=== PATIENT | male | born 1965 ===

== ENCOUNTER 2017-01-21 21:48 | Emergency (ER) | payer MEDICARE ==
[2017-01-21 21:48] VITALS: BMI 35.9
[2017-01-21 21:59] VITALS: BP 157/94; PULSE 82; RESP 18; TEMP 98.9; O2SAT 98
[2017-01-21] MEDS ORDERED: TDAP Vaccine 0.5 mL Syr IM ONE (22:03)
--- NOTE | 2017-01-21 22:18 | ED PDOC ---
HPI: General Adult Time Seen by Provider: 01/21/17 21:58 Chief Complaint (Nursing): Upper Extremity Problem/Injury History Per: Patient Additional Complaint(s): Pt. states 2 days ago he slipped and fell backwards landing directly on the L elbow. Pt. states since then he's developed pain in that area. Reports also developing bruising. Pt. is concerned area may be infected as it feels warm. Denies fever, other injury, numbness, hx of anemia, head injury. Past Medical History Reviewed: Historical Data, Nursing Documentation, Vital Signs Vital Signs: Last Vital Signs Temp 98.9 F 01/21/17 21:56 Pulse 82 01/21/17 21:56 Resp 18 01/21/17 21:56 BP 157/94 H 01/21/17 21:56 Pulse Ox 98 01/21/17 22:21 - Medical History PMH: Anxiety, Depression, HTN Denies: Chronic Kidney Disease - Family History Family History: States: No Known Family Hx - Home Medications Home Medications: Ambulatory Orders Medication Instructions Recorded Enalapril Maleate 5 mg PO DAILY 09/17/15 Meloxicam 15 mg PO DAILY 09/17/15 Asenapine [Saphris] 10 mg SL DAILY 06/07/16 FLUoxetine [Fluoxetine HCl] 40 mg PO DAILY 06/07/16 - Allergies Allergies/Adverse Reactions: Allergies Allergy/AdvReac Type Severity Reaction Status Date / Time No Known Allergies Allergy Verified 09/16/15 09:10 Review of Systems ROS Statement: Except As Marked, All Systems Reviewed And Found Negative Physical Exam - Physical Exam Appears: Positive for: Well, Non-toxic, No Acute Distress Skin: Positive for: Normal Color, Warm. Negative for: Rash Pulses-Radial (L): 2+ Pulses-Radial (R): 2+ Extremity: Positive for: Normal ROM (actively of entire LUE), Capillary Refill ( < 2 seconds of LUE), Other (LUE: L elbow with direct pinpoint posterior tenderness with superficial abrasion with minimal warmth but no surrounding erythema, fluctuance, or induration; large ecchymotic area on medial distal L upper arm extending to L proximal forearm) Neurologic/Psych: Positive for: Alert, Oriented - ECG O2 Sat by Pulse Oximetry: 98 - Progress ED Course And Treament: tetanus prophylaxis administered x-rays ordered Elbow xray: 1. There may be mild soft tissue swelling over the olecranon process of the ulna. 2. No visible acute fracture or dislocation. Bacitracin ointment applied to abrasion. Elbow messi wrap applied along with shoulder sling. Pt. instructed to watch for any increase swelling, redness, discharge or fever and if any develop pt. is to return to ED immediately. Disposition - Clinical Impression Clinical Impression: Elbow contusion - Patient ED Disposition Is Patient to be Admitted: No - Disposition Referrals: Natalie Arambula MD [Staff Provider] - [facility] [Outside] Disposition: Routine/Home Disposition Time: 22:54 Condition: STABLE Instructions: Elbow Sprain (ED), Abrasion (ED) Print Language: GREEK
--- NOTE | 2017-01-22 10:20 | RAD ---
PROCEDURE: Left elbow dated 01/21/2017 HISTORY: Trauma COMPARISON: No prior. FINDINGS: BONES: The current study reveals no evidence of acute displaced fracture nor dislocation. Osseous structures appear intact. There is a tiny elliptical shaped well corticated bony density adjacent to the tip of the olecranon not seen on the oblique view which probably represent some old posttraumatic mineralization versus tiny chronic avulsion injury. Appear joint spaces otherwise unremarkable. There is moderate dorsal soft tissue swelling -edema infiltration of the subcutaneous tissues. The possibility of a posttraumatic bursitis not excluded. There are no radiopaque foreign bodies. Impression: No acute fracture. Probable tiny corticated density adjacent to the olecranon could represent some old posttraumatic mineralization versus tiny chronic avulsion injury. Moderate dorsal soft tissue swelling as above. Rule out posttraumatic bursitis.
== END 2017-01-21 23:21 | disposition home or self-care (01) ==
LOC: H.ER 21:48
DX: S50.02XA Contusion of left elbow, initial encounter (principal); W19.XXXA Unspecified fall, initial encounter; Y92.89 Other specified places as the place of occurrence of the external cause

== ENCOUNTER 2018-12-31 15:21 | Emergency (ER) | payer MEDICARE ==
[2018-12-31 15:21] VITALS: BMI 35.9
[2018-12-31 15:47] VITALS: RESP 18; TEMP 99.3
[2018-12-31] MEDS ORDERED: Sodium Chloride 0.9% 1,000 ML IV STA (16:07)
[2018-12-31] MEDS ORDERED: Atropine-Diphenoxylate 0.025-2.5 mg Tab PO STA (16:08)
--- NOTE | 2018-12-31 16:20 | ED PDOC ---
HPI:Nausea, Vomiting, Diarrhea Time Seen by Provider: 12/31/18 15:51 Chief Complaint (Nursing): Abdominal Pain Chief Complaint (Provider): Diarrhea History Per: Patient History/Exam Limitations: no limitations Onset/Duration Of Symptoms: Days (x2) Current Symptoms Are (Timing): Still Present Additional Complaint(s): Patient is a 53 y/o male with complaints of diarrhea for the past two days. Patient reports over ten episodes of watery, non-bloody diarrhea, crampy abdo valentine pain, subjective fever, chills, and nausea. Patient claims his symptoms worsen when eating, as a result, patient complains of decreased PO intake. Of note, a week before symptoms started patient was in [place]. While there he exhibited none of these symptoms. Furthermore, patient's is in ED with the similar symptoms. Patient indicated he has been taking Pepto Bismol and Motrin with no relief. In addition, patient states he recently had some lemon water with bicarbonate to drink. PCP: Dr. Reji Syed Past Medical History Reviewed: Historical Data, Nursing Documentation, Vital Signs Vital Signs: Last Vital Signs Temp 99.3 F 12/31/18 15:45 Pulse 87 12/31/18 15:45 Resp 18 12/31/18 15:45 BP 147/87 12/31/18 15:45 Pulse Ox 98 12/31/18 15:45 Primary Care Provider: Reji Syed - Medical History PMH: Anxiety, Depression, HTN Denies: Chronic Kidney Disease - Surgical History Surgical History: No Surg Hx - Family History Family History: States: No Known Family Hx - Social History Current smoker - smoking cessation education provided: No Ex-Smoker (has not smoked in the last 12 months): No - Home Medications Home Medications: Ambulatory Orders Medication Instructions Recorded Enalapril Maleate 5 mg PO DAILY 09/17/15 Meloxicam 15 mg PO DAILY 09/17/15 Asenapine [Saphris] 10 mg SL DAILY 06/07/16 FLUoxetine [Fluoxetine HCl] 40 mg PO DAILY 06/07/16 Atropine/Diphenoxylate [Lonox 2 tab PO Q6 PRN #30 tab 12/31/18 0.025 MG-2.5 MG] Ondansetron ODT [Zofran ODT] 1 odt PO Q6 PRN #20 odt 12/31/18 Saccharomyces Boulardi [Florastor] 500 mg PO BID #28 cap 12/31/18 - Allergies Allergies/Adverse Reactions: Allergies Allergy/AdvReac Type Severity Reaction Status Date / Time No Known Allergies Allergy Verified 12/31/18 15:47 Review of Systems ROS Statement: Except As Marked, All Systems Reviewed And Found Negative Constitutional: Positive for: Fever (subjective), Chills Gastrointestinal: Positive for: Nausea, Abdominal Pain (crampy), Diarrhea (watery, non-bloody) Physical Exam - Reviewed Nursing Documentation Reviewed: Yes Vital Signs Reviewed: Yes - Physical Exam Appears: Positive for: No Acute Distress (tired appearing) Head Exam: Positive for: ATRAUMATIC, NORMAL INSPECTION, NORMOCEPHALIC Skin: Positive for: Warm, Dry Eye Exam: Positive for: EOMI, PERRL ENT: Positive for: Normal ENT Inspection (tacky mucous membranes) Neck: Positive for: Painless ROM, Supple Cardiovascular/Chest: Positive for: Regular Rate, Rhythm. Negative for: Murmur Respiratory: Positive for: Normal Breath Sounds. Negative for: Respiratory Distress Gastrointestinal/Abdominal: Positive for: Normal Exam, Tenderness (bilateral u pper quadrant). Negative for: Mass, Distended, Guarding, Rebound Back: Positive for: Normal Inspection. Negative for: Decreased ROM Extremity: Positive for: Normal ROM. Negative for: Deformity Lymphatic: Negative for: Adenopathy Neurological/Psych: Positive for: Awake, Alert. Negative for: Motor/Sensory Deficits - Laboratory Results Result Diagrams: 12/31/18 16:31 12/31/18 16:31 - ECG O2 Sat by Pulse Oximetry: 98 (RA) Pulse Ox Interpretation: Normal Medical Decision Making Medical Decision Making: Time: 1607 Impression: Diarrhea DDx includes but not limited to gastroenteritis, infectious diarrhea, and colitis. Plan: CMP Lact Acid, Plasma Lipase CBC Lomotil 2 tab PO IV Fluids Pepcid 20 mg IVP Zofran Inj 8 mg IV IV Insertion Labs c/w viral syndrome. No emergently significant abnormalities Stable for dc with followup. MARIA pt findings and plan of care. Scribe Attestation: Documented by Lalo Schwartz, acting as a scribe Thiago Alcaraz MD. Provider Scribe Attestation: All medical record entries made by the Scribe were at my direction and personally dictated by me. I have reviewed the chart and agree that the record accurately reflects my personal performance of the history, physical exam, medical decision making, and the department course for this patient. I have also personally directed, reviewed, and agree with the discharge instructions and disposition. Disposition - Clinical Impression Clinical Impression: Gastroenteritis Counseled Patient/Family Regarding: Studies Performed, Diagnosis, Need For Followup, Rx Given - Disposition Referrals: Reji Syed MD [Family Provider] - ([facility] [address] [facility] [address] [facility] [place]) Disposition: Routine/Home Disposition Time: 17:20 Condition: STABLE Prescriptions: Atropine/Diphenoxylate [Lonox 0.025 MG-2.5 MG] 2 tab PO Q6 PRN #30 tab PRN Reason: Diarrhea Ondansetron ODT [Zofran ODT] 1 odt PO Q6 PRN #20 odt PRN Reason: Nausea/Vomiting Saccharomyces Boulardi [Florastor] 500 mg PO BID #28 cap Instructions: Gastroenteritis (ED) Forms: [facility] ED School/Work Excuse Print Language: MAORI
[2018-12-31] MEDS ORDERED: Atropine-Diphenoxylate 0.025-2.5 mg Tab ONE (16:38)
[2018-12-31 16:50] LABS: BASO % 0.3 % (0.0-2.0); EOS # 0.1 K/uL (0.0-0.7); EOS % 1.8 % (0.0-4.0); HEMOGLOBIN 14.5 g/dL (12.0-18.0); LYMPH # 0.5 K/uL (1.0-4.3); LYMPH % 12.2 % (20.0-40.0); MEAN CELL VOLUME 89.1 fl (80.0-94.0); MEAN CORPUSCULAR HEMOGLOBIN 29.8 pg (27.0-31.0); MEAN CORPUSCULAR HGB CONC 33.4 g/dL (33.0-37.0); MEAN PLATELET VOLUME 9.8 fl (7.2-11.7); MONO # 0.9 K/uL (0.0-0.8); MONO % 21.7 % (0.0-10.0); NEUT # 2.8 K/uL (1.8-7.0); NRBC % 0.1 % (0.0-0.0); PLATELET COUNT 170 K/uL (130-400); RBC 4.88 Mil/uL (4.40-5.90); RED CELL DISTRIBUTION WIDTH 13.2 % (11.5-14.5); WHITE BLOOD COUNT 4.3 K/uL (4.8-10.8)
[2018-12-31 16:59] LABS: ALB/GLOB RATIO 1.5 (1.0-2.1); ALBUMIN 4.1 g/dL (3.5-5.0); ALT/SGPT 29 U/L (21-72); AST/SGOT 20 U/L (17-59); BLOOD UREA NITROGEN 12 mg/dl (9-20); CALCIUM 8.5 mg/dL (8.4-10.2); GFR NON-AFRICAN AMERICAN > 60; LIPASE 45 U/L (23-300)
[2018-12-31 17:31] LABS: BANDS 2 % (0-2); EOSINOPHIL 1 % (0-7); LYMPHOCYTE 12 % (20-50); MONOCYTE 18 % (0-10); NEUTROPHIL 67 % (42-75); TOTAL CELLS COUNTED 100
[2018-12-31 17:32] LABS: PLATELET CLUMPS PRESENT; PLATELET ESTIMATE NORMAL (NORMAL)
[2018-12-31 17:40] VITALS: BP 133/77; PULSE 69
[2019-01-01 16:13] VITALS: O2SAT 98
== END 2018-12-31 17:23 | disposition home or self-care (01) ==
LOC: H.ER 15:21
DX: K52.9 Noninfective gastroenteritis and colitis, unspecified (principal)
CPT/HCPCS: 80053; 83605; 83690; 85025; 87045; 96361; 96374; 96375; 99283; J2405; J7030